=== PATIENT | female | born 1995 | race African-American/Black ===

== ENCOUNTER 2023-07-07 15:05 | Emergency (ER) | payer BC, SELFPAY ==
[2023-07-07 15:17] VITALS: BP 109/70; PULSE 99; RESP 16; TEMP 36.7; O2SAT 100
--- NOTE | 2023-07-07 15:45 | ED.ASTHMA ---
HPI - Asthma General Chief Complaint: Asthma Stated Complaint: SOB asthmatic Source: patient Mode of arrival: ambulatory Limitations: no limitations History of Present Illness HPI Narrative: Patient presents requesting an albuterol inhaler. She indicates she had asthma as a child. Over the course of the last month and a half she has had SOB with exertion. She notes her symptoms particularly when working at her job at [email or web address] or when working out. Today she was working and experienced SOB so requested to leave. She was advised that she would need to provide her employer with a note from a medical professional. at the present time she denies any shortness of breath or other respiratory symptoms. She is asking whether can provide her with a prescription for an albuterol inhaler as her cyst . She denies any leg swelling, chest pain or cough. Related Data Allergies Allergy/AdvReac Type Severity Reaction Status Date / Time No Known Allergies Allergy Verified 07/07/23 15:24 Review of Systems Review of Systems: CONSTITUTIONAL: Denies fever, chills, or sweats. EYES: Denies visual changes, redness, or discharge. ENT: Denies rhinorrhea, congestion, sore throat, or otalgia. CARDIOVASCULAR: Denies chest pain, palpitations, or edema. RESPIRATORY: Reports shortness of breath earlier, now resolved. Denies cough. GASTROINTESTINAL: Denies abdominal pain, nausea, vomiting, or diarrhea. GENITOURINARY: Denies dysuria or hematuria. SKIN: Denies rash or itching. MUSCULOSKELETAL: Denies back pain, joint pain, or myalgia. NEUROLOGIC: Denies headache, numbness, dizziness, or weakness. PSYCHIATRIC: Denies anxiety or depression. [facility] Past Medical History Medical History Asthma exacerbation Surgical History Surgical History No pertinent past surgical history Family History Family History Mother Unknown family medical history Social History Social History Smoking status: Never smoker Substance use: never Living arrangements: with family Gender identity (if verbalized by the patient): Female Spiritual care concerns: No Exam Narrative: GENERAL: Well-appearing, well-nourished, and in no acute distress. HEAD: Normocephalic, atraumatic. EYES: PERRLA and EOMI. ENT: Nares clear, no rhinorrhea or epistaxis. Mucous membranes moist. Oropharynx without tonsillar hypertrophy exudate or other lesions. Bilateral TMs pearly macias nonbulging NECK: Supple. No adenopathy or masses. No carotid bruits or JVD CHEST: Clear to auscultation. No respiratory distress. No wheezes rales or rhonchi HEART: Regular rate and rhythm. No murmur heard. Normal peripheral pulses. ABDOMEN: Soft, nontender, nondistended, normal active bowel sounds. EXTREMITIES: Normal range of motion. No edema. SKIN: Warm, dry, no rash. NEURO: No focal deficits. Alert and oriented x3. PSYCH: Normal mood and affect. Course Course Emergency Course: This is a 27-year-old female who presented requesting an albuterol inhaler. She denies any SOB or other respiratory symptoms at the present time. Saturations 100% on RA. She appears well clinically and feels well enough to go home. She should follow up outpatient for further evaluation and treatment and go to the ER for worsening symptoms. Pt in agreement with plan of care. Level of Care: Express Care Visit Vital Signs Vital signs: Vital Signs Temperature 36.7 C 07/07/23 15:17 Pulse Rate 99 07/07/23 15:17 Respiratory Rate 16 07/07/23 15:17 Blood Pressure 109/70 07/07/23 15:17 Pulse Oximetry 100 07/07/23 15:17 Oxygen Delivery Room Air 07/07/23 15:17 Temperature 36.7 C 07/07/23 15:17 Pulse Rate 99 07/07/23 15:17 Respiratory Ra
== END 2023-07-07 15:47 | disposition home or self-care (01) ==
PROVIDERS: Emergency Provider Nurse Practitioner
DX: J45.909 Unspecified asthma, uncomplicated (principal)
CPT/HCPCS: 99213; G0463